=== PATIENT | male | born 1960 | race Caucasian/White ===

== ENCOUNTER 2019-02-01 10:29 | Outpatient (REF) | payer OTHER, SELFPAY ==
[2019-02-01 21:42] LABS: Anion Gap 8.9 mmol/L (3-11); BUN 19 mg/dL (7-18); CO2 27.1 mmol/L (21.0-32.0); CREATININE 1.05 mg/dL (0.70-1.30); Calcium 9.1 mg/dL (8.5-10.1); Chloride 104 mmol/L (98-107); Glucose 102 mg/dL (70-100); Potassium 4.8 mmol/L (3.5-5.1); Sodium 140 mmol/L (136-145)
== END 2019-02-01 10:49 ==
LOC: NCHCN 10:29
PROVIDERS: PCP Family Medicine; Visit Provider Family Medicine
DX: Z00.00 Encounter for general adult medical examination without abnormal findings (principal); N40.0 Benign prostatic hyperplasia without lower urinary tract symptoms; Z12.5 Encounter for screening for malignant neoplasm of prostate
CPT/HCPCS: 80048; 84153

== ENCOUNTER 2019-06-07 09:57 | Outpatient (REF) | payer OTHER, SELFPAY ==
[2019-06-09 08:53] LABS: PSA, Screening 4.4 ng/ml (0-3.5)
== END 2019-06-07 10:17 ==
LOC: NCHCN 09:57
PROVIDERS: PCP Family Medicine; Visit Provider Family Medicine
DX: Z12.5 Encounter for screening for malignant neoplasm of prostate (principal)
CPT/HCPCS: 84153

== ENCOUNTER 2020-03-27 10:43 | Outpatient (REF) | payer OTHER, SELFPAY ==
[2020-03-27 22:15] LABS: Hemoglobin A1C 5.6 % (3.8-5.6)
[2020-03-27 22:36] LABS: ALT 48 U/L (16-63); AST 26 U/L (15-37); Albumin 4.1 g/dL (3.4-5.0); Alkaline Phosphatase 64 U/L (46-116); Anion Gap 7.7 mmol/L (3-11); BUN 23 mg/dL (7-18); Bilirubin, Total 0.6 mg/dL (0.2-1.0); CO2 27.3 mmol/L (21.0-32.0); CREATININE 1.17 mg/dL (0.70-1.30); Calcium 8.9 mg/dL (8.5-10.1); Calculated LDL 108 mg/dL (<100); Chloride 106 mmol/L (98-107); Cholesterol 160 mg/dL (<200); Glucose 102 mg/dL (74-106); HDL Cholesterol 43 mg/dL (40-60); Potassium 4.9 mmol/L (3.5-5.1); Sodium 141 mmol/L (136-145); Total Protein 7.5 g/dL (6.4-8.2); Triglyceride 47 mg/dL (<150)
[2020-03-29 09:17] LABS: PSA, Screening 5.5 ng/mL (0.0-4.5)
== END 2020-03-27 11:03 ==
LOC: NCHCN 10:43
PROVIDERS: PCP Family Medicine; Visit Provider Family Medicine
DX: I10 Essential (primary) hypertension (principal); Z13.1 Encounter for screening for diabetes mellitus; Z13.220 Encounter for screening for lipoid disorders; Z12.5 Encounter for screening for malignant neoplasm of prostate
CPT/HCPCS: 80053; 80061; 84153; 83036

== ENCOUNTER 2021-09-10 16:10 | Outpatient (REF) | payer OTHER, SELFPAY ==
[2021-09-10 21:34] LABS: Anion Gap 7.4 mmol/L (3-11); BUN 22 mg/dL (7-18); CO2 26.6 mmol/L (21.0-32.0); CREATININE 1.1 mg/dL (0.70-1.30); Calcium 8.9 mg/dL (8.5-10.1); Chloride 106 mmol/L (98-107); Glucose 79 mg/dL (74-106); Potassium 4.8 mmol/L (3.5-5.1); Sodium 140 mmol/L (136-145)
[2021-09-10 21:43] LABS: Hemoglobin A1C 5.6 % (<5.7)
== END 2021-09-10 16:11 | disposition home or self-care (01) ==
LOC: NCHCN 16:10
PROVIDERS: PCP Family Medicine; Visit Provider Family Medicine
DX: Z12.5 Encounter for screening for malignant neoplasm of prostate (principal); Z13.1 Encounter for screening for diabetes mellitus; I10 Essential (primary) hypertension
CPT/HCPCS: 80048; 84153; 83036

== ENCOUNTER 2023-06-02 20:19 | Outpatient (REF) | payer OTHER, SELFPAY ==
[2023-06-02 21:17] LABS: Anion Gap 5.6 mmol/L (3-11); BUN 20 mg/dL (7-18); CO2 29.4 mmol/L (21.0-32.0); CREATININE 1.3 mg/dL (0.70-1.30); Calcium 9.2 mg/dL (8.5-10.1); Calculated LDL 44 mg/dL (<100); Chloride 103 mmol/L (98-107); Cholesterol 126 mg/dL (<200); Estimated GFR 61.73 (mL/min/1.73m2); Glucose 102 mg/dL (74-106); HDL Cholesterol 51 mg/dL (40-60); Potassium 4.5 mmol/L (3.5-5.1); Sodium 138 mmol/L (136-145); Triglyceride 156 mg/dL (<150)
[2023-06-03 21:54] LABS: PSA, Screening 4.4 ng/mL (<=4.5)
== END 2023-06-02 20:20 | disposition home or self-care (01) ==
LOC: LBN 20:19
PROVIDERS: PCP Family Medicine; Visit Provider Family Medicine
DX: I10 Essential (primary) hypertension (principal); E78.5 Hyperlipidemia, unspecified; R97.20 Elevated prostate specific antigen [PSA]; Z12.5 Encounter for screening for malignant neoplasm of prostate; Z00.8 Encounter for other general examination
CPT/HCPCS: 80048; 80061; 84153

== ENCOUNTER 2024-07-29 10:39 | Outpatient (REF) | payer OTHER, SELFPAY ==
[2024-07-29 15:19] LABS: Hemoglobin A1C 5.8 % (<5.7)
[2024-07-29 15:22] LABS: Anion Gap 8.7 mmol/L (3-11); BUN 25 mg/dL (7-18); CO2 26.3 mmol/L (21.0-32.0); CREATININE 1.2 mg/dL (0.70-1.30); Calcium 9.2 mg/dL (8.5-10.1); Calculated LDL 61 mg/dL (<100); Chloride 107 mmol/L (98-107); Cholesterol 125 mg/dL (<200); Estimated GFR 67.53 (mL/min/1.73m2); Glucose 94 mg/dL (74-106); HDL Cholesterol 57 mg/dL (40-60); Potassium 5.2 mmol/L (3.5-5.1); Sodium 142 mmol/L (136-145); Triglyceride 38 mg/dL (<150)
[2024-07-29 22:58] LABS: PSA, Screening 5.7 ng/mL (<=4.5)
== END 2024-07-29 10:40 | disposition home or self-care (01) ==
LOC: NCHCN 10:39
PROVIDERS: PCP Family Medicine; Visit Provider Family Medicine
DX: Z00.00 Encounter for general adult medical examination without abnormal findings (principal); I10 Essential (primary) hypertension; E78.5 Hyperlipidemia, unspecified; Z12.5 Encounter for screening for malignant neoplasm of prostate
CPT/HCPCS: 80048; 80061; 84153; 83036

== ENCOUNTER 2025-08-22 21:36 | Outpatient (REF) | payer OTHER, SELFPAY ==
[2025-08-22 22:03] LABS: ALT 51 U/L (10-49); AST 47 U/L (<34); Albumin 4.3 g/dL (3.4-5.0); Alkaline Phosphatase 75 U/L (46-116); Anion Gap 5.4 mmol/L (3-11); BUN 24 mg/dL (9-23); Bilirubin, Total 0.60 mg/dL (0.2-1.2); CO2 23.6 mmol/L (20.0-31.0); Calcium 9.0 mg/dL (8.3-10.6); Chloride 110 mmol/L (98-107); Cholesterol 113 mg/dL (<200); Glucose 109 mg/dL (74-106); HDL Cholesterol 52 mg/dL (>40); Potassium 4.7 mmol/L (3.5-5.1); Sodium 139 mmol/L (136-145); Total Protein 7.3 g/dL (5.7-8.2)
[2025-08-22 22:52] LABS: Hemoglobin A1C 5.8 % (<5.7)
[2025-08-23 18:27] LABS: PSA, Screening 6.3 ng/mL (<=4.5)
== END 2025-08-22 21:37 | disposition home or self-care (01) ==
LOC: NCHCN 21:36
PROVIDERS: PCP Family Medicine; Visit Provider Family Medicine
DX: Z00.00 Encounter for general adult medical examination without abnormal findings (principal); I10 Essential (primary) hypertension; E66.9 Obesity, unspecified; E11.9 Type 2 diabetes mellitus without complications; E78.5 Hyperlipidemia, unspecified; Z12.5 Encounter for screening for malignant neoplasm of prostate
CPT/HCPCS: 80053; 80061; 84153; 83036